=== PATIENT | male | born 1980 | race African-American/Black ===

== ENCOUNTER 2020-03-09 21:24 | Emergency (ER) | payer MEDICAID ==
[~2020-03-09] VITALS: Ht 182.9 cm; Wt 158.8 kg
[2020-03-09 22:39] LABS: Urine Bacteria NONE SEEN /hpf (None Seen); Urine Blood Negative /uL (Negative); Urine Specific Gravity 1.013 (1.001-1.035); Urine WBC <1 /hpf (0 - 3)
[2020-03-09 22:45] LABS: Basophils # (auto) 0.1 10 ^3/uL (0-0.2); Basophils % (auto) 0.6 % (0.0-2.0); Monocytes # (auto) 0.7 10 ^3/uL (0-1.3); Nucleated Red Blood Cells % 0.1 %
[2020-03-09 22:47] LABS: Eosinophils # (auto) 0.2 10 ^3/uL (0-0.8); Eosinophils % (auto) 1.8 % (0.0-7.0); Hematocrit 40.5 % (41.0-53.0); Hemoglobin 12.5 g/dL (13.5-17.5); Lymphocytes # (auto) 1.8 10 ^3/uL (0.4-5.4); Lymphocytes % (auto) 20.5 % (10.0-50.0); Mean Corpuscular Hemoglobin 22.8 pg (28.0-32.0); Mean Corpuscular Volume 73.5 fL (80.0-100.0); Monocytes % (auto) 8.6 % (0.0-12.0); Neutrophils % (auto) 68.5 % (37.0-80.0); Platelet Count (auto) 248 10^3/uL (140-450); Red Cell Distribution Width 14.3 % (11.8-14.3); White Blood Cell 8.7 10^3/uL (4.4-10.8)
[2020-03-09 22:59] LABS: Alanine Aminotransferase 28 U/L (16-61); Albumin 3.6 g/dL (3.4-5.0); Amylase 41 U/L (25-115); Anion Gap 6 (5-15); Blood Urea Nitrogen 15 mg/dL (7-18); Calcium 8.9 mg/dL (8.5-10.1); Carbon Dioxide 27 mmol/L (21-32); Chloride 104 mmol/L (98-107); Glucose 123 mg/dL (74-106); Lipase 158 U/L (73-393); Potassium 4.1 mmol/L (3.5-5.1); Sodium 137 mmol/L (136-145)
[2020-03-09 23:02] LABS: INR 0.99 (0.9-1.15); Partial Thromboplastin Time 26.4 sec (23.0-31.2)
[2020-03-09 23:04] LABS: Alkaline Phosphatase 68 U/L (45-117); Aspartate Aminotransferase 12 U/L (15-37); BUN/Creatinine Ratio 10.7; Bilirubin, Total 0.3 mg/dL (0.2-1.0); GFR African American 71 mL/min; GFR Non-African American 59 mL/min; Total Protein 7.5 g/dL (6.4-8.2)
[2020-03-10] MEDS ORDERED: ONDANSETRON HCL 4 MG/2 ML VIAL IV ONE (03:15)
[2020-03-10] MEDS ORDERED: SODIUM CHLORIDE 0.9% 1,000 ML IV ONE (03:15)
[2020-03-10] MEDS ORDERED: MORPHINE SULFATE 4 MG/ML SYR/VIAL IV ONE (03:15)
[2020-03-10 03:56] VITALS: BP 124/78
== END 2020-03-10 03:32 | disposition home or self-care (01) ==
LOC: ER 21:27
DX: K57.30 Diverticulosis of large intestine without perforation or abscess without bleeding (principal)
CPT/HCPCS: 36415; 74176; 80053; 81001; 82150; 82962; 83690; 84484; 85025; 85379; 85610; 85730; 96361; 96374; 96375; 99285; J2270; J2405; J7030

== ENCOUNTER 2022-03-15 01:30 | Emergency (ER) | payer MEDICAID ==
[~2022-03-15] VITALS: Ht 182.9 cm; Wt 160.0 kg
[2022-03-15 02:00] VITALS: BP 144/76
[2022-03-15 03:33] LABS: Basophils # (auto) 0.1 10 ^3/uL (0-0.2); Mean Corpuscular Hemoglobin 22.7 pg (28.0-32.0); Mean Corpuscular Hgb Conc. 31.3 g/dL (32.0-36.0); White Blood Cell 7.4 10^3/uL (4.4-10.8)
[2022-03-15 03:34] LABS: Basophils % (auto) 1.2 % (0.0-2.0); Eosinophils # (auto) 0.2 10 ^3/uL (0-0.8); Hematocrit 40.7 % (41.0-53.0); Hemoglobin 12.7 g/dL (13.5-17.5); Lymphocytes # (auto) 2.9 10 ^3/uL (0.4-5.4); Lymphocytes % (auto) 38.5 % (10.0-50.0); Mean Corpuscular Volume 72.5 fL (80.0-100.0); Monocytes # (auto) 0.5 10 ^3/uL (0-1.3); Monocytes % (auto) 7.1 % (0.0-12.0); Neutrophils # (auto) 3.7 10 ^3/uL (1.6-8.6); Neutrophils % (auto) 50.2 % (37.0-80.0); Nucleated Red Blood Cells % 0.1 %; Red Blood Cells 5.61 10^6/uL (4.5-5.90); Red Cell Distribution Width 14.3 % (11.8-14.3)
[2022-03-15 03:55] LABS: Albumin 3.8 g/dL (3.4-5.0); Calcium 8.9 mg/dL (8.5-10.1); Magnesium 2.4 mg/dL (1.6-2.6); Potassium 4.1 mmol/L (3.5-5.1)
[2022-03-15 03:58] LABS: Bilirubin, Total 0.3 mg/dL (0.2-1.0); Total Protein 7.1 g/dL (6.4-8.2)
[2022-03-15 04:35] LABS: BUN/Creatinine Ratio 10.7
== END 2022-03-15 05:28 | disposition left against medical advice (07) ==
LOC: ER 01:30
DX: R07.9 Chest pain, unspecified (principal); I10 Essential (primary) hypertension; Z53.21 Procedure and treatment not carried out due to patient leaving prior to being seen by health care provider
CPT/HCPCS: 36415; 70450; 71046; 80053; 83735; 83880; 84484; 85025; 93005

== ENCOUNTER 2022-04-25 01:55 | Emergency (ER) | payer MEDICAID ==
[~2022-04-25] VITALS: Ht 185.4 cm; Wt 151.9 kg
[2022-04-25 02:30] VITALS: BP 152/94
== END 2022-04-25 07:19 | disposition left against medical advice (07) ==
LOC: ER 01:55
DX: I10 Essential (primary) hypertension (principal); R42 Dizziness and giddiness; H53.8 Other visual disturbances; Z53.21 Procedure and treatment not carried out due to patient leaving prior to being seen by health care provider

== ENCOUNTER 2022-05-17 00:41 | Emergency (ER) | payer MEDICAID ==
[~2022-05-17] VITALS: Ht 185.4 cm; Wt 152.2 kg
[2022-05-17 00:50] VITALS: BP 161/89
[2022-05-17] MEDS ORDERED: LORazepam 0.5 MG TAB PO ONE (01:30)
[2022-05-17 01:39] LABS: Hemoglobin 12.7 g/dL (13.5-17.5); Red Cell Distribution Width 13.9 % (11.8-14.3)
[2022-05-17 01:40] LABS: Basophils # (auto) 0.1 10 ^3/uL (0-0.2); Basophils % (auto) 0.8 % (0.0-2.0); Eosinophils # (auto) 0.1 10 ^3/uL (0-0.8); Eosinophils % (auto) 1.9 % (0.0-7.0); Hematocrit 41.3 % (41.0-53.0); Lymphocytes % (auto) 40.8 % (10.0-50.0); Mean Corpuscular Hemoglobin 22.2 pg (28.0-32.0); Mean Corpuscular Hgb Conc. 30.7 g/dL (32.0-36.0); Mean Corpuscular Volume 72.2 fL (80.0-100.0); Monocytes # (auto) 0.5 10 ^3/uL (0-1.3); Monocytes % (auto) 6.5 % (0.0-12.0); Neutrophils # (auto) 3.7 10 ^3/uL (1.6-8.6); Nucleated Red Blood Cells % 0.4 %; Red Blood Cells 5.71 10^6/uL (4.5-5.90); White Blood Cell 7.3 10^3/uL (4.4-10.8)
[2022-05-17 01:49] LABS: Albumin 4.2 g/dL (3.4-5.0); BUN/Creatinine Ratio 16.3; Calcium 9.5 mg/dL (8.5-10.1); Potassium 3.9 mmol/L (3.5-5.1)
[2022-05-17 02:00] LABS: Bilirubin, Total 0.3 mg/dL (0.2-1.0); Total Protein 7.3 g/dL (6.4-8.2)
== END 2022-05-17 03:45 | disposition left against medical advice (07) ==
LOC: ER 00:44
DX: R07.89 Other chest pain (principal)
CPT/HCPCS: 36415; 71045; 80053; 83880; 84484; 85025; 93005

== ENCOUNTER 2024-05-10 13:51 | Emergency (ER) | payer MEDICAID ==
[~2024-05-10] VITALS: Ht 182.9 cm; Wt 153.2 kg
--- NOTE | 2024-05-10 14:30 | ED.PDOC ---
History of Present Illness HPI Comments 44 Y M with PMHX of HTN presents to the ED with CC of hypertension. Patient states, that he is experiencing an episode of hypertension with associated symptoms of anxiety and lightheadedness, Patient relays, that he has slight substernal chest tightness that he believes is due to his spontaneous onset anxiety. Patient's blood pressure in triage read at 179/79 and recheck read at 169/105. Patient denies chest pain, nausea, vomiting, or diarrhea. Time Seen by MD: 14:20 Reviewed Notes: Nurses Notes, Medications, Allergies Allergies: Coded Allergies: NO KNOWN ALLERGIES (Unverified , 05/17/22) Information Source: Patient Mode of Arrival: Ambulatory Severity: Mild Timing: Hours Duration: Since onset Prehospital treatment: None Past Medical History PAST MEDICAL HISTORY: Asthma, HTN Surgical History: Denies all surgeries Family History Family History: Reviewed,noncontributory to illness Social History Smoker: Non-Smoker Alcohol: Denies ETOH Use Drugs: Denies Drug Use Lives In: Home Constitutional: denies: chills, diaphoresis, fatigue, fever, malaise, sweats, weakness, others EENTM: denies: blurred vision, double vision, ear bleeding, ear discharge, ear drainage, ear pain, ear ringing, eye pain, eye redness, hearing loss, mouth pain, mouth swelling, nasal discharge, nose bleeding, nose congestion, nose pain, photophobia, tearing, throat pain, throat swelling, voice changes, others Respiratory: denies: cough, hemoptysis, orthopnea, SOB at rest, shortness of breath, SOB with excertion, stridor, wheezing, others Cardiovascular: reports: others (CHEST TIGHTNESS); denies: chest pain, dizzy spells, diaphoresis, Dyspnea on exertion, edema, irregular heart beat, left arm pain, lightheadedness, palpitations, PND, syncope Gastrointestinal: denies: abdomen distended, abdominal pain, blood streaked bowels, constipated, diarrhea, dysphagia, difficulty swallowing, hematemesis, melena, nausea, poor appetite, poor fluid intake, rectal bleeding, rectal pain, vomiting, others Genitourinary: denies: burning, dysuria, flank pain, frequency, hematuria, incontinence, penile discharge, penile sore, pain, testicle pain, testicle swelling, urgency, others Neurological: denies: dizziness, fainting, headache, left sided numbness, left sided weakness, numbness, paresthesia, pre-existing deficit, right sided numbness, right sided weakness, seizure, speech problems, tingling, tremors, weakness, others Musculoskeletal: denies: back pain, gout, joint pain, joint swelling, muscle pain, muscle stiffness, neck pain, others Integumetry: denies: bruises, change in color, change in hair/nails, dryness, laceration, lesions, lumps, rash, wounds, others Allergic/Immunocompromised: denies: Difficulty Healing, Frequent Infections, Hives, Itching, others Hematologic/Lymphatic: denies: anemia, blood clots, easy bleeding, easy bruising, swollen glands, others Endocrine: denies: excessive hunger, excessive sweating, excessive thirst, excessive urination, flushing, intolerance to cold, intolerance to heat, unexplained weight gain, unexplained weight loss, others Psychiatric: reports: anxiety; denies: bipolar disorder, depression, hopeless, panic disorder, schizophrenia, sleepless, suicidal, others All Other Systems: Reviewed and Negative Physical Exam General Appearance: No Apparent Distress HEENT: Normal ENT Inspection, Pharynx Normal, TMs Normal Neck: Full Range of Motion, Non-Tender, Normal, Normal Inspection Respiratory: Chest Non-Tender, Lungs Clear, No Accessory Muscle Use, No Respiratory Distress, Normal Breath Sounds Cardiovascular: No Edema, No JVD, No Murmur, No Gallop, Normal Peripheral Pulses, Regular Rate/Rhythm Breast Exam: Deferred Gastrointestinal: No Organomegaly, Non Tender, No Pulsatile Mass, Normal Bowel Sounds, Soft Genitalia: Deferred Pelvic: Deferred Rectal: Deferred Extremities: No calf tenderness, Normal capillary refill, Normal inspection, Normal range of motion, Non-tender, No pedal edema Musculoskeletal : Apperance: Normal Neurologic: Alert, metalworker 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 Was a procedure done?: No EKG EKG : Pulse Rate (adult): 89 [place]: Normal Cardiac Rhythm: NSR Block: None Hypertrophy: None ST: Normal Differential Dx Considerations may include: HTN URGENCY, ANXIETY ATTACK X-Ray, Labs, Meds, VS Vital Signs Date Time Temp Pulse Resp B/P (MAP) Pulse Ox O2 Delivery O2 Flow Rate FiO2 05/10/24 15:25 98.3 81 18 164/101 (122) 95 98.3 05/10/24 15:25 81 18 95 Room Air 05/10/24 15:24 164/101 05/10/24 14:41 98.0 92 18 178/95 (122) 96 98.0 05/10/24 14:37 Room Air* 0 21 05/10/24 14:36 178/95 05/10/24 14:30 89 05/10/24 14:15 98.5 94 18 179/97 (124) 99 169/105 (126) 163/98 (119) Lab Test 05/10/24 16:27 05/10/24 15:38 05/10/24 15:25 Range/Units Troponin I High Sensitivity < 3 L < 3 L </=54 ng/L White Blood Count 6.8 4.4-10.8 10^3/uL Red Blood Count 5.71 4.5-5.90 10^6/uL Hemoglobin 13.5 13.5-17.5 g/dL Hematocrit 41.5 41.0-53.0 % Mean Corpuscular Volume 72.6 L 80.0-100.0 fL Mean Corpuscular Hemoglobin 23.6 L 28.0-32.0 pg Mean Corpuscular Hemoglobin Concent 32.4 32.0-36.0 g/dL Red Cell Distribution Width 13.8 11.8-14.3 % Platelet Count 275 140-450 10^3/uL Mean Platelet Volume 8.1 6.9-10.8 fL Neutrophils (%) (Auto) 59.3 37.0-80.0 % Lymphocytes (%) (Auto) 27.7 10.0-50.0 % Monocytes (%) (Auto) 8.1 0.0-12.0 % Eosinophils (%) (Auto) 4.2 0.0-7.0 % Basophils (%) (Auto) 0.7 0.0-2.0 % Neutrophils # (Auto) 4.0 1.6-8.6 10 ^3/uL Lymphocytes # (Auto) 1.9 0.4-5.4 10 ^3/uL Monocytes # (Auto) 0.6 0-1.3 10 ^3/uL Eosinophils # (Auto) 0.3 0-0.8 10 ^3/uL Basophils # (Auto) 0.1 0-0.2 10 ^3/uL Nucleated Red Blood Cells 0.1 % Sodium Level 139 136-145 mmol/L Potassium Level 3.9 3.5-5.1 mmol/L Chloride Level 105 98-107 mmol/L Carbon Dioxide Level 28 20-31 mmol/L Anion Gap 6 5-15 Blood Urea Nitrogen 14 9-23 mg/dL Creatinine 1.37 H 0.700-1.30 mg/dL Glomerular Filtration Rate Calc 64 >90 mL/min BUN/Creatinine Ratio 10.2 10.0-20.0 Serum Glucose 98 74-106 mg/dL Calcium Level 10.4 8.7-10.4 mg/dL Urine Color Yellow Yellow Urine Clarity Clear Clear Urine pH 7.0 5.0-9.0 Urine Specific [facility] 1.024 1.001-1.035 Urine Protein Negative Negative Urine Ketones Negative Negative Urine Blood Negative Negative /uL Urine Nitrite Negative Negative Urine Bilirubin Negative Negative Urine Urobilinogen 3 H Negative mg/dL Urine Leukocyte Esterase Negative Negative /uL Urine RBC None seen 0 - 3 /hpf Urine WBC <1 0 - 3 /hpf Urine Squamous Epithelial Cells None seen <5 /hpf Urine Bacteria None seen None Seen /hpf Urine Glucose Normal Normal mg/dL Current Medications Medications (Trade) Dose Ordered Sig/Gunjan Route Start Time Stop Time Status Last Admin Aspirin 162 mg ONCE ONCE PO 05/10/24 14:30 05/10/24 14:31 DC 05/10/24 14:36 Clonidine HCl (Catapres Tablet) 0.1 mg ONCE ONCE PO 05/10/24 14:30 05/10/24 14:31 DC 05/10/24 14:36 CXR: IMPRESSION: No acute cardiopulmonary disease. At this time the patient's CBC is within normal limits The chemistry panel is within normal limits The urine test is negative The patient was given aspirin 162 mg by mouth The patient was also given clonidine 0.1 mg by mouth for the elevated blood pressure At this time, the patient was being discharged. Images Reviewed?: Images reviewed and evaluated by me Time of 1ST Reevaluation: 14:50 Reevaluation 1ST: Unchanged Patient Education/Counseling: Diagnosis, Treatment, Prognosis, Need For Follow Up Family Education/Counseling: No Family Present Additional Information - I reviewed the following notes from patient's past medical encounters: 05/07/22 DX: CHEST PAIN - The following tests were ordered, and results were reviewed by me: CXR, LABS - I reviewed and agreed with the following test results read by other provider: CXR - I discussed treatments and results with medical personnel and: PATIENT Departure 1 Departure Time of Disposition: 17:22 Impression: Primary Impression: Hypertensive urgency Additional Impression: Acute anxiety Disposition: HOME / SELF CARE / HOMELESS Condition: Fair Discharged With: Self Critical Care Note Critical Care Time?: No Stability Stability form required: No Heart Score Heart Score: Heart Score Response (Comments) Value History N/A 0 EKG N/A 0 Age N/A 0 Risk Factors N/A 0 Troponin N/A 0 Total 0 I personally scribed for KATLYN BETANCUR MD ([email or web address]) on 05/10/24 at 14:30. Electronically submitted by Mariana Garcia ([email or web address]). I personally scribed for KATLYN BETANCUR MD ([email or web address]) on 05/10/24 at 16:39. Electronically submitted by Mariana Garcia ([email or web address]). I personally scribed for KATLYN BETANCUR MD ([email or web address]) on 05/10/24 at 16:40. Electronically submitted by Mariana Garcia ([email or web address]). I personally scribed for KATLYN BETANCUR MD ([email or web address]) on 05/10/24 at 16:41. Electronically submitted by Mariana Garcia ([email or web address]). KATLYN BETANCUR MD May 10, 2024 14:30
[2024-05-10] MEDS: ASPirin 81 mg TAB PO ONE (14:36)
[2024-05-10] MEDS: cloNIDine HCL 0.1 MG TAB PO ONE (14:36)
--- NOTE | 2024-05-10 14:43 | DVH ---
XY CHEST TWO VIEWS ROUTINE CLINICAL HISTORY: pain COMPARISON: CHEST TWO VIEWS ROUTINE on DOS: 03/15/22, CXR2 on DOS: 03/15/22 TECHNIQUE: Frontal and lateral view of the chest was obtained FINDINGS: Lines and Tubes: None Lungs: No focal consolidation. Pleura: No effusion. No pneumothorax. Cardiomediastinal contours: Unremarkable Bones: No acute osseous abnormality. IMPRESSION: No acute cardiopulmonary disease.
[2024-05-10 15:25] VITALS: TEMP 98.3
[2024-05-10 16:12] LABS: Basophils % (auto) 0.7 % (0.0-2.0); Eosinophils # (auto) 0.3 10 ^3/uL (0-0.8); Mean Corpuscular Volume 72.6 fL (80.0-100.0); Nucleated Red Blood Cells % 0.1 %
[2024-05-10 16:17] LABS: Urine Bacteria None Seen /hpf (None Seen)
[2024-05-10 16:17] LABS: Basophils # (auto) 0.1 10 ^3/uL (0-0.2); Eosinophils % (auto) 4.2 % (0.0-7.0); Hematocrit 41.5 % (41.0-53.0); Hemoglobin 13.5 g/dL (13.5-17.5); Lymphocytes # (auto) 1.9 10 ^3/uL (0.4-5.4); Lymphocytes % (auto) 27.7 % (10.0-50.0); Mean Corpuscular Hemoglobin 23.6 pg (28.0-32.0); Mean Corpuscular Hgb Conc. 32.4 g/dL (32.0-36.0); Monocytes # (auto) 0.6 10 ^3/uL (0-1.3); Monocytes % (auto) 8.1 % (0.0-12.0); Neutrophils % (auto) 59.3 % (37.0-80.0); Platelet Count (auto) 275 10^3/uL (140-450); Red Blood Cells 5.71 10^6/uL (4.5-5.90); Red Cell Distribution Width 13.8 % (11.8-14.3); White Blood Cell 6.8 10^3/uL (4.4-10.8)
[2024-05-10 16:27] LABS: Anion Gap 6 (5-15); Carbon Dioxide 28 mmol/L (20-31); Chloride 105 mmol/L (98-107); Potassium 3.9 mmol/L (3.5-5.1); Sodium 139 mmol/L (136-145)
[2024-05-10 16:33] LABS: Urine Blood Negative /uL (Negative); Urine Clarity Clear (Clear); Urine Color Yellow (Yellow); Urine Protein, UAD Negative (Negative); Urine Specific Gravity 1.024 (1.001-1.035); Urine Squamous Epithelial Cell None Seen /hpf (<5); Urine Urobilinogen 3 mg/dL (Negative); Urine WBC <1 /hpf (0 - 3)
[2024-05-10 16:33] LABS: BUN/Creatinine Ratio 10.2 (10.0-20.0); Blood Urea Nitrogen 14 mg/dL (9-23); Glucose 98 mg/dL (74-106)
[2024-05-10 16:36] LABS: Calcium 10.4 mg/dL (8.7-10.4)
[2024-05-10 17:41] VITALS: BP 171/99; PULSE 71; RESP 18; O2SAT 100
== END 2024-05-10 17:42 | disposition home or self-care (01) ==
LOC: ER 13:51
DX: I16.0 Hypertensive urgency (principal); F41.9 Anxiety disorder, unspecified; J45.909 Unspecified asthma, uncomplicated
CPT/HCPCS: 36415; 71046; 80048; 81001; 84484; 85025

== ENCOUNTER 2024-07-27 00:58 | Inpatient (IN) | payer MEDICAID ==
[~2024-07-27] VITALS: Ht 185.4 cm; Wt 157.8 kg
[2024-07-27] VITALS (10 sets, daily range): BP systolic 128–151; BP diastolic 77–93; PULSE 78–85; RESP 14–18; TEMP 97.7–97.9; O2SAT 94–98
--- NOTE | 2024-07-27 01:55 | ED.PDOC ---
History of Present Illness HPI Comments 44-year-old male who came to ER for high blood pressure. Patient has history of hypertension and has a good compliance to his medications. States he was at home earlier, when he stood up, and he feels suddenly dizzy with the headaches. Blood pressure taken at home was 168/107 mm Hg. Denies any chest pains or shortness a breath, Blood pressure at the ER was 159/92 mmHg Chief Complaint: High Blood Pressure Time Seen by MD: 01:55 Primary Care Provider: GENEVIEVE Mathis Notes: Nurses Notes Allergies: Coded Allergies: NO KNOWN ALLERGIES (Unverified , 05/17/22) Information Source: Patient Mode of Arrival: Ambulatory Severity: Moderate Timing: Hours Duration: Since onset Prehospital treatment: None Past Medical History PAST MEDICAL HISTORY: Asthma, HTN Surgical History: Denies all surgeries Family History Family History: Reviewed,noncontributory to illness Social History Smoker: Non-Smoker Alcohol: Denies ETOH Use Drugs: Denies Drug Use Lives In: Home Constitutional: denies: chills, diaphoresis, fatigue, fever, malaise, sweats, weakness, others EENTM: denies: blurred vision, double vision, ear bleeding, ear discharge, ear drainage, ear pain, ear ringing, eye pain, eye redness, hearing loss, mouth pa in, mouth swelling, nasal discharge, nose bleeding, nose congestion, nose pain, photophobia, tearing, throat pain, throat swelling, voice changes, others Respiratory: denies: cough, hemoptysis, orthopnea, SOB at rest, shortness of breath, SOB with excertion, stridor, wheezing, others Cardiovascular: denies: chest pain, dizzy spells, diaphoresis, Dyspnea on exertion, edema, irregular heart beat, left arm pain, lightheadedness, palpitations, PND, syncope, others Gastrointestinal: denies: abdomen distended, abdominal pain, blood streaked bowels, constipated, diarrhea, dysphagia, difficulty swallowing, hematemesis, melena, nausea, poor appetite, poor fluid intake, rectal bleeding, rectal pain, vomiting, others Genitourinary: denies: burning, dysuria, flank pain, frequency, hematuria, incontinence, penile discharge, penile sore, pain, testicle pain, testicle swelling, urgency, others Neurological: reports: dizziness, headache; denies: fainting, left sided numbness, left sided weakness, numbness, paresthesia, pre-existing deficit, right sided numbness, right sided weakness, seizure, speech problems, tingling, tremors, weakness, others Musculoskeletal: denies: back pain, gout, joint pain, joint swelling, muscle pain, muscle stiffness, neck pain, others Integumetry: denies: bruises, change in color, change in hair/nails, dryness, laceration, lesions, lumps, rash, wounds, others Allergic/Immunocompromised: denies: Difficulty Healing, Frequent Infections, Hives, Itching, others Hematologic/Lymphatic: denies: anemia, blood clots, easy bleeding, easy bruising, swollen glands, others Endocrine: denies: excessive hunger, excessive sweating, excessive thirst, excessive urination, flushing, intolerance to cold, intolerance to heat, unexplained weight gain, unexplained weight loss, others Psychiatric: denies: anxiety, bipolar disorder, depression, hopeless, panic disorder, schizophrenia, sleepless, suicidal, others Physical Exam General Appearance: No Apparent Distress, Normal HEENT: Normal ENT Inspection, Pharynx Normal, TMs Normal Neck: Full Range of Motion, Non-Tender, Normal, Normal Inspection Respiratory: Chest Non-Tender, Lungs Clear, No Accessory Muscle Use, No Respiratory Distress, Normal Breath Sounds Cardiovascular: No Edema, No JVD, No Murmur, No Gallop, Normal Peripheral Pulses, Regular Rate/Rhythm Breast Exam: Deferred Gastrointestinal: No Organomegaly, Non Tender, No Pulsatile Mass, Normal Bowel Sounds, Soft Genitalia: Deferred Pelvic: Deferred Rectal: Deferred Extremities: No calf tenderness, Normal capillary refill, Normal inspection, Normal range of motion, Non-tender, No pedal edema Musculoskeletal : Apperance: Normal Neurologic: Alert, 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 Was a procedure done?: No Differential Dx Considerations may include: Anemia, electrolyte imbalance, hypertensive urgency X-Ray, Labs, Meds, VS Vital Signs Date Time Temp Pulse Resp B/P (MAP) Pulse Ox O2 Delivery O2 Flow Rate FiO2 07/27/24 01:42 97.7 82 18 150/95 (113) 95 97.7 07/27/24 01:40 Room Air* 0 21 07/27/24 01:39 84 07/27/24 01:15 98.1 93 18 159/92 (114) 99 98.1 Lab Test 07/27/24 02:23 07/27/24 01:37 Range/Units Troponin I High Sensitivity 4 4 </=54 ng/L White Blood Count 7.8 4.4-10.8 10^3/uL Red Blood Count 5.29 4.5-5.90 10^6/uL Hemoglobin 12.3 L 13.5-17.5 g/dL Hematocrit 38.5 L 41.0-53.0 % Mean Corpuscular Volume 72.9 L 80.0-100.0 fL Mean Corpuscular Hemoglobin 23.4 L 28.0-32.0 pg Mean Corpuscular Hemoglobin Concent 32.1 32.0-36.0 g/dL Red Cell Distribution Width 13.8 11.8-14.3 % Platelet Count 264 140-450 10^3/uL Mean Platelet Volume 8.1 6.9-10.8 fL Neutrophils (%) (Auto) 51.4 37.0-80.0 % Lymphocytes (%) (Auto) 36.0 10.0-50.0 % Monocytes (%) (Auto) 9.5 0.0-12.0 % Eosinophils (%) (Auto) 2.4 0.0-7.0 % Basophils (%) (Auto) 0.7 0.0-2.0 % Neutrophils # (Auto) 4.0 1.6-8.6 10 ^3/uL Lymphocytes # (Auto) 2.8 0.4-5.4 10 ^3/uL Monocytes # (Auto) 0.7 0-1.3 10 ^3/uL Eosinophils # (Auto) 0.2 0-0.8 10 ^3/uL Basophils # (Auto) 0.1 0-0.2 10 ^3/uL Nucleated Red Blood Cells 0.1 % Sodium Level 140 136-145 mmol/L Potassium Level 3.6 3.5-5.1 mmol/L Chloride Level 105 98-107 mmol/L Carbon Dioxide Level 29 20-31 mmol/L Anion Gap 6 5-15 Blood Urea Nitrogen 16 9-23 mg/dL Creatinine 1.33 H 0.700-1.30 mg/dL Glomerular Filtration Rate Calc 67 >90 mL/min BUN/Creatinine Ratio 12.0 10.0-20.0 Serum Glucose 92 74-106 mg/dL Calcium Level 9.8 8.7-10.4 mg/dL Time of 1ST Reevaluation: 01:50 Reevaluation 1ST: Unchanged Patient Education/Counseling: Diagnosis, Treatment Family Education/Counseling: No Family Present Departure 1 Departure Time of Disposition: 03:43 (Patient with a worsening dizziness shortness of breath. We will admit patient for further workup) Impression: Primary Impression: Dizziness Additional Impressions: Weakness Shortness of breath Disposition: ADMITTED INPATIENT Admit to: Med Surg Condition: Serious Critical Care Note Critical Care Time?: No Stability Stability form required: No Heart Score Heart Score: Heart Score Response (Comments) Value History N/A 0 EKG N/A 0 Age N/A 0 Risk Factors N/A 0 Troponin N/A 0 Total 0 I personally scribed for LILLIANA AMOR MD ([email or web address]) on 07/27/24 at 01:55. Electronically submitted by Moises Rodriguez ([email or web address]). LILLIANA AMOR MD Jul 27, 2024 01:55
--- NOTE | 2024-07-27 01:58 | DVH ---
CHEST RADIOGRAPH Indication: dizziness Technique: Single frontal view of the chest was obtained COMPARISON: CHEST PORTABLE on DOS: 05/17/22, CXRP on DOS: 05/16/22, EKG on DOS: 03/15/22, EKG on DOS: 1 05/15/21, EKG on DOS: 03/15/22 FINDINGS: Lines and Tubes: None Lungs: Clear Pleura: No effusion. No pneumothorax. Cardiomediastinal contours: Unremarkable Bones: Unremarkable IMPRESSION: 1. No acute disease.
[2024-07-27 02:01] LABS: Chloride 105 mmol/L (98-107); Potassium 3.6 mmol/L (3.5-5.1); Sodium 140 mmol/L (136-145)
[2024-07-27 02:02] LABS: Anion Gap 6 (5-15); Calcium 9.8 mg/dL (8.7-10.4); Carbon Dioxide 29 mmol/L (20-31)
--- NOTE | 2024-07-27 02:04 | DVH ---
EXAM: CT HEAD WITHOUT CONTRAST INDICATION: dizziness TECHNIQUE: CT of the head without intravenous contrast. Radiation Dose : 1. Head: CT Dose: CTDI volume is 69.51 mGy. Dose-length product is 1367.97 mGy*cm The dose indicators for CT are the volume Computed Tomography (CT) Dose Index (CTDIvol) and the Dose Length Product (DLP), and are measured in units of mGy and mGy-cm, respectively. These indicators are not patient dose, but values generated from the CT scanner acquisition factors. The report includes radiation exposure data for exposures received during this examination. COMPARISON: HEAD WITHOUT CONTRAST on DOS: 03/15/22 FINDINGS: There is no evidence of acute intracranial hemorrhage, extra-axial collection, mass effect, midline s hift, herniation or hydrocephalus. The ventricles, sulci and cisterns are age appropriate. The marquez-white differentiation is intact. Minimal bilateral ethmoid and sphenoid mucosal sinus disease is noted. The remaining visualized para nasal sinuses are clear. 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 The mastoid air cells are clear. The surrounding soft tissues and osseous structures are unremarkable. IMPRESSION: 1. No acute intracranial abnormality. Radiation optimization: All CT scans at this facility use at least one of these dose optimization yvonne hniques: automated exposure control mA and/or kV adjustment per patient size (includes targeted exam s where dose is matched to clinical indication) or iterative reconstruction.
[2024-07-27 02:06] LABS: Basophils # (auto) 0.1 10 ^3/uL (0-0.2); Eosinophils # (auto) 0.2 10 ^3/uL (0-0.8); Monocytes % (auto) 9.5 % (0.0-12.0); Nucleated Red Blood Cells % 0.1 %
[2024-07-27 02:07] LABS: Blood Urea Nitrogen 16 mg/dL (9-23); Glucose 92 mg/dL (74-106)
[2024-07-27 02:08] LABS: Basophils % (auto) 0.7 % (0.0-2.0); Eosinophils % (auto) 2.4 % (0.0-7.0); Hematocrit 38.5 % (41.0-53.0); Hemoglobin 12.3 g/dL (13.5-17.5); Lymphocytes # (auto) 2.8 10 ^3/uL (0.4-5.4); Mean Corpuscular Hemoglobin 23.4 pg (28.0-32.0); Mean Corpuscular Hgb Conc. 32.1 g/dL (32.0-36.0); Mean Corpuscular Volume 72.9 fL (80.0-100.0); Monocytes # (auto) 0.7 10 ^3/uL (0-1.3); Neutrophils % (auto) 51.4 % (37.0-80.0); Platelet Count (auto) 264 10^3/uL (140-450); Red Blood Cells 5.29 10^6/uL (4.5-5.90); Red Cell Distribution Width 13.8 % (11.8-14.3); White Blood Cell 7.8 10^3/uL (4.4-10.8)
--- NOTE | 2024-07-27 07:39 | DVHHP2 ---
History of Present Illness Reason for Visit: Dizziness with elevated blood pressure History of Present Illness Laura Caraballo is a 44-year-old male with past medical history of hypertension and asthma who presents to the ED for dizziness, blurry vision, and elevated blood pressure. Patient reports that he was painting outdoors and stated that his head suddenly felt hot and numb. Patient also reports that he has been constipated for the last day and a half in his last bowel movement was 2 days ago and he states he goes daily. Patient also reports that he was sick with congestion his [place] also at chair side was sick with allergies as well. He states he did not take any medications or antibiotics for the illness. Patient denies chest pains, shortness of breath, chills, paresthesia, tingling, recent trauma or injury, abdominal pain, nausea, vomiting, or diarrhea. Patient also states that he takes beet root and ashwagandha. Cardiovascular: HTN Pulmonary: Asthma Past Surgical History: None Family History: Hypertension, Other (Mom with hypertension and dad with [place]) Smoke: No ALCOHOL: none Drugs: None Lives: with Family Domestic Violence: Neg Review of Systems Constitutional: Yes: Other (Dizziness) Eyes: Other (Blurry vision) Gastrointestinal: Constipation Allergies: Coded Allergies: NO KNOWN ALLERGIES (Unverified , 05/17/22) Exam Vital Signs Vital Signs Date Time Temp Pulse Resp B/P (MAP) Pulse Ox O2 Delivery O2 Flow Rate FiO2 07/27/24 01:42 97.7 82 18 150/95 (113) 95 97.7 07/27/24 01:40 Room Air* 0 21 General Appearance: Alert, Oriented X3, Cooperative, No acute distress HEENT: Atraumatic, PERRLA, EOMI, Mucous membr. moist/pink Respiratory: Clear to auscultation, Normal air movement Cardiovascular: Normal S1, Normal S2, No murmurs Abdominal: Soft, No tenderness Extremities: No clubbing, No cyanosis, Normal pulses Neuro: Normal gait, Normal speech, Strength at 5/5 X4 ext, Normal tone, Sensation intact Psych/Mental Status: Mental status NL, Mood NL Labs/Xrays Labs Test 07/27/24 02:23 07/27/24 01:37 Range/Units Troponin I High Sensitivity 4 </=54 ng/L White Blood Count 7.8 4.4-10.8 10^3/uL Red Blood Count 5.29 4.5-5.90 10^6/uL Hemoglobin 12.3 L 13.5-17.5 g/dL Hematocrit 38.5 L 41.0-53.0 % Mean Corpuscular Volume 72.9 L 80.0-100.0 fL Mean Corpuscular Hemoglobin 23.4 L 28.0-32.0 pg Mean Corpuscular Hemoglobin Concent 32.1 32.0-36.0 g/dL Red Cell Distribution Width 13.8 11.8-14.3 % Platelet Count 264 140-450 10^3/uL Mean Platelet Volume 8.1 6.9-10.8 fL Neutrophils (%) (Auto) 51.4 37.0-80.0 % Lymphocytes (%) (Auto) 36.0 10.0-50.0 % Monocytes (%) (Auto) 9.5 0.0-12.0 % Eosinophils (%) (Auto) 2.4 0.0-7.0 % Basophils (%) (Auto) 0.7 0.0-2.0 % Neutrophils # (Auto) 4.0 1.6-8.6 10 ^3/uL Lymphocytes # (Auto) 2.8 0.4-5.4 10 ^3/uL Monocytes # (Auto) 0.7 0-1.3 10 ^3/uL Eosinophils # (Auto) 0.2 0-0.8 10 ^3/uL Basophils # (Auto) 0.1 0-0.2 10 ^3/uL Nucleated Red Blood Cells 0.1 % Sodium Level 140 136-145 mmol/L Potassium Level 3.6 3.5-5.1 mmol/L Chloride Level 105 98-107 mmol/L Carbon Dioxide Level 29 20-31 mmol/L Anion Gap 6 5-15 Blood Urea Nitrogen 16 9-23 mg/dL Creatinine 1.33 H 0.700-1.30 mg/dL Glomerular Filtration Rate Calc 67 >90 mL/min BUN/Creatinine Ratio 12.0 10.0-20.0 Serum Glucose 92 74-106 mg/dL Calcium Level 9.8 8.7-10.4 mg/dL EXAM: CT HEAD WITHOUT CONTRAST INDICATION: dizziness TECHNIQUE: CT of the head without intravenous contrast. Radiation Dose : 1. Head: CT Dose: CTDI volume is 69.51 mGy. Dose-length product is 1367.97 mGy*cm The dose indicators for CT are the volume Computed Tomography (CT) Dose Index (CTDIvol) and the Dose Length Product (DLP), and are measured in units of mGy and mGy-cm, respectively. These indicators are not patient dose, but values generated from the CT scanner acquisition factors. The report includes radiation exposure data for exposures received during this examination. COMPARISON: HEAD WITHOUT CONTRAST on DOS: 03/15/22 FINDINGS: There is no evidence of acute intracranial hemorrhage, extra-axial collection, mass effect, midline shift, herniation or hydrocephalus. The ventricles, sulci and cisterns are age appropriate. The marquez-white differentiation is intact. Minimal bilateral ethmoid and sphenoid mucosal sinus disease is noted. The remaining visualized paranasal sinuses are clear. 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 The mastoid air cells are clear. The surrounding soft tissues and osseous structures are unremarkable. IMPRESSION: 1. No acute intracranial abnormality. CHEST RADIOGRAPH Indication: dizziness Technique: Single frontal view of the chest was obtained COMPARISON: CHEST PORTABLE on DOS: 05/17/22, CXRP on DOS: 05/16/22, EKG on DOS: 03/15/22, EKG on DOS: 03/15/22, EKG on DOS: 03/15/22 FINDINGS: Lines and Tubes: None Lungs: Clear Pleura: No effusion. No pneumothorax. Cardiomediastinal contours: Unremarkable Bones: Unremarkable IMPRESSION: 1. No acute disease. Assessment/Plan Assessment/Plan Assessment Autonomic instability Hypertension Visual acuity impairment Morbid obesity Constipation SAM History of asthma Plan Admit to med surge Antiemetics Antihypertensives Meclizine Duo nebs Stool softener Echo ordered IV fluids ordered UDS TSH Flu test COVID test Counseled patient on lifestyle modifications, diet, and exercise Home medications reconciled Discussed plan of care with patient, patient's spouse and nurse DVT prophylaxis not indicated patient ambulating PUD prophylaxis-omeprazole, continue home medication Plan discussed with: Patient, Spouse My Orders Orders - REENA SWAN Procedure Category Date Status Time Admit ADMIT 07/27/24 Transmitted 07:35 Allergies YOANA 07/27/24 Transmitted 07:35 Code Status CODE 07/27/24 Transmitted 07:35 0.9% Ns 1000 Ml PHA 07/27/24 Transmitted 07:45 Ondansetron Hcl PHA 07/27/24 Transmitted (Zofran) 07:45 Complete Blood Count LAB 07/28/24 Verified 04:00 Comprehensive LAB 07/28/24 Verified Metabolic Panel 04:00 Cardiac DIET 07/27/24 Transmitted Diet-2gna,Lofat,Lochol Breakfast Echo 2d Mode Cardiac US 07/27/24 Transmitted DOP 07:35 Acetaminophen Tablet PHA 07/27/24 Transmitted (Tylenol Tablet) 07:45 Drug Screen LAB 07/27/24 Transmitted 07:35 Urinalysis LAB 07/27/24 Transmitted 07:35 Thyroid Stimulating LAB 07/27/24 Transmitted Hormone 07:35 Rapid Influenza A&B LAB 07/27/24 Verified 07:37 Covid19 Antigen Ginger LAB 07/27/24 Verified Date of Service: Jul 27, 2024 Billing Provider: REENA SWAN Common Visit Codes: [id number] INP/OBS CARE (HIGH) REENA SWAN Jul 27, 2024 07:39
[2024-07-27] MEDS ORDERED: SODIUM CHLORIDE 0.9% 1,000 ML IV SCH (07:45)
[2024-07-27] MEDS ORDERED: ONDANSETRON HCL 4 MG/2 ML VIAL IV PRN (07:45)
[2024-07-27] MEDS ORDERED: ACETAMINOPHEN 325 MG TAB PO PRN (07:45)
[2024-07-27 09:47] LABS: Rapid Influenza A Negative (Negative); Rapid Influenza B Negative (Negative)
[2024-07-27 09:48] LABS: COVID19 ANTIGEN SOFIA FIA NEGATIVE (NEGATIVE)
--- NOTE | 2024-07-27 10:58 | ECG ---
[facility] Test Date: 2024-07-27 Test Time: 01:33:08 Pat Name: ROSEY JACINTO Department: ER Room: 0239 Gender: M Drill Doctor: RICHA : 1980 Requested By: LILLIANA AMOR Order Number: [id number] Reading MD: Jasbir Sweeney Measurements Intervals [place] Rate: 84 P: 74 [place]: 149 QRS: 32 QRSD: 95 T: 42 QT: 354 QTc: 419 Interpretive Statements Sinus rhythm Electronically Signed On 07-27-2024 11:57:33 PDT by Jasbir Sweeney Please click the below link to view image of tracing.
[2024-07-27] MEDS ORDERED: HYDR50TA69 PO (11:55)
[2024-07-27] MEDS ORDERED: CHOL50007 PO (11:55)
[2024-07-27] MEDS ORDERED: OMEP1CAP70 PO (11:55)
[2024-07-27] MEDS ORDERED: ATEN25TA PO (11:55)
[2024-07-27] MEDS ORDERED: HYDR25TA4 PO (11:55)
[2024-07-27] MEDS ORDERED: AMLO1TAB23 PO (11:55)
[2024-07-27] MEDS ORDERED: MECLIZINE HCL 25 MG TAB PO PRN (12:00)
[2024-07-27] MEDS: SODIUM CHLORIDE 0.9% 1,000 ML IV SCH (12:00)
--- NOTE | 2024-07-27 13:14 | DVH ---
CT ABDOMEN AND PELVIS WITHOUT CONTRAST CLINICAL HISTORY: connstipation TECHNIQUE: Multiple contiguous axial images of the abdomen and pelvis without intravenous contrast. T he images were reformatted degenerate coronal and sagittal reconstructions. All CT scans at this medical facility are performed using dose modulation techniques as appropriate t o a performed exam including the following:Automated exposure control was utilized; adjustment of the MA and/or KV according to patient size; and use of iterative reconstruction technique. Radiation Dose Information: CT Dose: CTDI volume is 27 mGy. Dose-length product is 1358 mGy*cm Comparison: CT ABD PELVIS WO CONTRAST on DOS: 03/09/20 FINDINGS: Evaluation of the abdomen and pelvis is limited without intravenous contrast. The liver, gallbladder, pancreas, kidneys, adrenal glands, and spleen appear within normal limits. There is no gross evidence of abdominal lymphadenopathy. There is no free fluid or free air. The stomach grossly appears unremarkable. The small and large bowel loops demonstrate normal caliber and distribution. There are multiple diverticula in the distal colon without evidence of acute diver ticulitis. A normal appearing appendix is seen in the right lower quadrant abdomen. The abdominal aorta and IVC appear within normal limits. The bladder appears unremarkable for the degree of distention. Pelvic organ appears within normal barboza its. There is no gross evidence of a pelvic mass. There is no free fluid collection. Lung bases are clear. There is no acute osseous abnormality. IMPRESSION: 1. There is no acute process in the abdomen and pelvis. 2. Uncomplicated distal colon diverticulosis. HS:Y
[2024-07-27] MEDS: IPRATROPIUM BROM 0.5 MG/2.5ML INH SOL NEB PRN (13:20)
[2024-07-27] MEDS: ALBUTEROL SULF 2.5 MG/0.5ML(0.5%) NEB SOLN NEB PRN (13:20)
[2024-07-27] MEDS: DOCUSATE SOD 100 MG CAP PO SCH (21:54)
[2024-07-27] MEDS: hydrOXYzine 25 MG TAB or CAP PO PRN (21:58)
[2024-07-28] VITALS (11 sets, daily range): BP systolic 132–145; BP diastolic 77–88; PULSE 70–84; RESP 16–20; TEMP 97.4–98.1; O2SAT 94–100
[2024-07-28 06:34] LABS: Hemoglobin 12.1 g/dL (13.5-17.5); Monocytes # (auto) 0.6 10 ^3/uL (0-1.3); Neutrophils # (auto) 2.7 10 ^3/uL (1.6-8.6); Nucleated Red Blood Cells % 0.1 %
[2024-07-28 06:37] LABS: Basophils # (auto) 0.1 10 ^3/uL (0-0.2); Basophils % (auto) 0.8 % (0.0-2.0); Eosinophils # (auto) 0.3 10 ^3/uL (0-0.8); Eosinophils % (auto) 4.3 % (0.0-7.0); Lymphocytes # (auto) 2.7 10 ^3/uL (0.4-5.4); Lymphocytes % (auto) 43.1 % (10.0-50.0); Mean Corpuscular Hemoglobin 22.8 pg (28.0-32.0); Mean Corpuscular Volume 73.5 fL (80.0-100.0); Monocytes % (auto) 8.9 % (0.0-12.0); Neutrophils % (auto) 42.9 % (37.0-80.0); Platelet Count (auto) 250 10^3/uL (140-450); Red Cell Distribution Width 13.9 % (11.8-14.3); White Blood Cell 6.3 10^3/uL (4.4-10.8)
[2024-07-28 07:02] LABS: Potassium 4.1 mmol/L (3.5-5.1); Sodium 139 mmol/L (136-145)
[2024-07-28 07:16] LABS: Chloride 107 mmol/L (98-107)
[2024-07-28 07:29] LABS: Anion Gap 6 (5-15); Calcium 9.4 mg/dL (8.7-10.4); Carbon Dioxide 26 mmol/L (20-31)
[2024-07-28 07:34] LABS: Alkaline Phosphatase 47 U/L (46-116)
[2024-07-28 07:35] LABS: BUN/Creatinine Ratio 11.1 (10.0-20.0); Blood Urea Nitrogen 13 mg/dL (9-23); Glucose 100 mg/dL (74-106)
[2024-07-28 07:36] LABS: Alanine Aminotransferase 23 U/L (7-40); Albumin 4.2 g/dL (3.2-4.8); Aspartate Aminotransferase 17 U/L (13-40); Total Protein 6.5 g/dL (5.7-8.2)
[2024-07-28 07:37] LABS: Bilirubin, Total 0.4 mg/dL (0.2-1.0)
[2024-07-28] MEDS: CHOLECALCIFEROL (VITD3) 1,000UNIT=25mCg TAB PO SCH (10:00)
[2024-07-28] MEDS: ATENOLOL 25 MG TAB PO SCH (10:06)
[2024-07-28] MEDS: amLODIPine BESYLATE 5 MG TAB PO SCH (10:07)
[2024-07-28] MEDS: hydroCHLOROthiazide 25 MG TAB PO SCH (10:07)
[2024-07-28] MEDS: PANTOPRAZOLE 40 MG TAB PO SCH (10:07)
[2024-07-28] MEDS ORDERED: hydrOXYzine 25 MG TAB or CAP PO PRN (13:15)
--- NOTE | 2024-07-28 15:09 | DVH ---
EXAM: XY CHEST PORTABLE TECHNIQUE: Single frontal chest radiograph CLINICAL HISTORY: dizziness COMPARISON: XY CHEST PORTABLE on DOS: 07/27/24, CHEST PORTABLE on DOS: 05/17/22, CXRP on DOS: 05/16/22 Findings/Impression: Frontal chest radiograph demonstrates no acute osseous or superficial soft tissue abnormalities. The trachea is midline. The cardiac silhouette and mediastinum are within normal limits. No pneumothorax, pleural effusions, or consolidations.
--- NOTE | 2024-07-28 16:34 | DVHPN2 ---
Subjective Feels better Reviewed: Care Plan, H&P, Labs, Medications, Previous Orders, Radiology Changes from previous H/P or p: No Changes Eyes: Other (Blurry vision) Gastrointestinal: Constipation Objective Vitals Vital Signs Date Time Temp Pulse Resp B/P (MAP) Pulse Ox O2 Delivery O2 Flow Rate FiO2 07/28/24 13:00 97.9 82 20 145/77 (99) 96 97.9 07/28/24 09:30 Room Air* 0 21 Intake/Output Intake and Output 07/28/24 07:00 Intake Total 2825 ml Balance 2825 ml Intake Oral 1825 ml IV Total 1000 ml # Voids 2 General Appearance: Alert, Oriented X3, Cooperative, No acute distress HEENT: Atraumatic Lungs: Clear to auscultation Cardiovascular: Regular rate Extremities: Other (Trace to 1+ edema bilateral lower extremities) Medications Current Medications Medications Dose Ordered Sig/Gunjan Route Start Time Stop Time Status Last Admin Dose Admin Ondansetron HCl 4 mg Q4HP PRN IV 07/27/24 07:45 Acetaminophen 650 mg Q6HP PRN PO 07/27/24 07:45 Atenolol 25 mg DAILY PO 07/28/24 10:00 07/28/24 10:06 25 MG Hydrochlorothiazide 50 mg DAILY PO 07/28/24 10:00 07/28/24 10:07 50 MG Amlodipine Besylate 10 mg DAILY PO 07/28/24 10:00 07/28/24 10:07 10 MG Cholecalciferol 5,000 unit DAILY PO 07/28/24 10:00 Pantoprazole Sodium 40 mg DAILY PO 07/28/24 10:00 07/28/24 10:07 40 MG Meclizine HCl 12.5 mg [id number] PRN PO 07/27/24 12:00 Albuterol 2.5 mg Q4HPRN PRN NEB 07/27/24 12:00 07/28/24 07:36 2.5 MG Ipratropium Lentner 0.5 mg Q4HPRN PRN NEB 07/27/24 12:00 07/28/24 07:36 0.5 MG Sodium Chloride 1,000 ml @ 100 mls/hr Q10H IV 07/27/24 12:00 07/28/24 05:28 100 MLS/HR Docusate Sodium 100 mg BID PO 07/27/24 22:00 07/28/24 09:39 100 MG Hydroxyzine Pamoate 25 mg BID PRN PO 07/28/24 13:15 Laboratory Results Laboratory Tests 07/28/24 04:12 Chemistry Test 07/28/24 04:12 Albumin 4.2 g/dL (3.2-4.8) Calcium Level 9.4 mg/dL (8.7-10.4) Total Protein 6.5 g/dL (5.7-8.2) Coagulation Test 07/28/24 13:45 D-Dimer, Quantitative < 0.19 mg/L FEU (0.0-0.49) LFT Test 07/28/24 04:12 Alanine Aminotransferase (ALT) 23 U/L (7-40) Alkaline Phosphatase 47 U/L (46-116) Aspartate Amino Transferase (AST) 17 U/L (13-40) Total Bilirubin 0.4 mg/dL (0.2-1.0) Assessment/Plan Assessment/Plan Dizziness Hypertension Diverticulosis Morbid obesity Anemia Asthma Plan: Echocardiogram pending. D-dimer. Chest x-ray. Currently ultrasound. Further plan per orders Plan discussed with: Patient, Spouse My Orders Orders - DALIA WHATLEY MD Procedure Category Date Status Time Hydroxyzine Oral PHA 07/28/24 In Process (Vistaril Oral) 13:15 Chest Portable XY 07/28/24 Resulted 13:15 Carotid Duplx W Color US 07/28/24 Verified DOP 16:31 Date of Service: Jul 28, 2024 Billing Provider: DALIA WHATLEY MD Common Visit Codes: [id number] INP/OBS CARE(HIGH) DALIA WHATLEY MD Jul 28, 2024 16:34
--- NOTE | 2024-07-28 17:45 | DVH ---
Carotid Duplex Clinical History: dizziness Comparison: None Technique: Duplex Doppler evaluation of the extracranial carotid and vertebral arteries including color Doppler and spectral/pulsed waveform analysis was performed. Findings: RIGHT SIDE: The peak systolic velocities are 86 cm/s in the CCA, 66 cm/s in the ICA. The ICA/CCA ratio is 0.8. The external carotid artery is patent with peak systolic velocity of 90 cm/s proximally. There is appropriate antegrade flow in the right vertebral artery. LEFT SIDE: The peak systolic velocities are 80 cm/s in the CCA, 77 cm/s in the ICA. The ICA/CCA ratio is 1.0. The external carotid artery is patent with peak systolic velocity of 105 cm/s proximally. There is appropriate antegrade flow in the left vertebral artery. IMPRESSION: No evidence of hemodynamically significant stenosis in the bilateral carotid systems. Reference: Radiology 2003; 229:340-346 Normal ICA PSV is <125 cm/sec and no plaque or intimal thickening is visible sonographically additional criteria include ICA/CCA PSV ratio <2.0 and ICA EDV <40 cm/sec <50% ICA stenosis ICA PSV is <125 cm/sec and plaque or intimal thickening is visible sonographically additional criteria include ICA/CCA PSV ratio <2.0 and ICA EDV <40 cm/sec 50-69% ICA stenosis ICA PSV is 125-230 cm/sec and plaque is visible sonographically additional criteria include ICA/CCA PSV ratio of 2.0-4.0 and ICA EDV of 40-100 cm/sec 70% ICA stenosis but less than near occlusion ICA PSV is >230 cm/sec and visible plaque and luminal narrowing are seen at marquez-scale and color Dopp ler ultrasound (the higher the Doppler parameters lie above the threshold of 230 cm/sec, the greater the likelihood of severe disease) additional criteria include ICA/CCA PSV ratio >4 and ICA EDV >100 cm/sec
[2024-07-29] VITALS (10 sets, daily range): BP systolic 131–145; BP diastolic 75–84; PULSE 57–88; RESP 18–20; TEMP 97.8–98.3; O2SAT 98–100
--- NOTE | 2024-07-29 01:35 | DVHSR ---
APPROVED REPORT EXAM: Two-dimensional and M-mode echocardiogram with Doppler and color Doppler. Blood Pressure: 149/94 mmHg INDICATION Dizziness and Vertigo RISK FACTORS Obesity: Height: 6'1, Weight: 336 DIMENSIONS LVDd5.7 (3.8-5.7cm)LA (2D) (1.9-4.0cm)Aortic Root3.2 (2.0-3.7cm) LVDs3.5 (2.5-4.0cm)LA (MM) (1.9-4.0cm)Aortic Cusp Exc1.9 (1.5-2.0cm) EF (%) 65.0 (55-70%)Rt. Atrium (1.9-4.0cm)Asc. Aorta3.2 cm IVSd1.1 (0.7-1.1cm)RV (D) (1.8-2.4cm) PWd1.0 (0.7-1.1cm) Mitral Valve MitralMitral Stenosis E wave0.76m/sMV Mean GR.mmHg A wave0.75m/sMV Peak GR.mmHg E/A ratio1.02D MVAcm2 DECEL [id number] 1/2 Tim[place] Aortic Valve Aortic ValveAortic Stenosis V11.09m/Al[place] Mean GR.7mmHg V21.61m/Al[place] Peak GR.10mmHg LVOT Diameter2.4 (1.8-2.4cm)Doppler AVA3.06cm2 Pulmonic Valve V21.10m/s Other Information Quality : Technically LimitedRhythm : Technically limited study due to patient position.body habitus. Conclusion NORMAL LV FUNCTION LV EF IS 70% NORMAL VALVES NO EFFUSION NORMAL RV FUNCTION
--- NOTE | 2024-07-29 15:48 | DVHDS2 ---
Discharge Summary Date of Admission Jul 27, 2024 at 07:35 Date of Discharge: Jul 29, 2024 Admitting Diagnosis Hypertension with dizziness and blurred vision Labs/Diagnostic Data: Laboratory Results Test 07/28/24 13:45 07/28/24 04:12 07/27/24 08:17 07/27/24 02:23 D-Dimer, Quantitative < 0.19 mg/L FEU (0.0-0.49) White Blood Count 6.3 10^3/uL (4.4-10.8) Red Blood Count 5.30 10^6/uL (4.5-5.90) Hemoglobin 12.1 g/dL (13.5-17.5) Hematocrit 39.0 % (41.0-53.0) Mean Corpuscular Volume 73.5 fL (80.0-100.0) Mean Corpuscular Hemoglobin 22.8 pg (28.0-32.0) Mean Corpuscular Hemoglobin Concent 31.0 g/dL (32.0-36.0) Red Cell Distribution Width 13.9 % (11.8-14.3) Platelet Count 250 10^3/uL (140-450) Mean Platelet Volume 8.1 fL (6.9-10.8) Neutrophils (%) (Auto) 42.9 % (37.0-80.0) Lymphocytes (%) (Auto) 43.1 % (10.0-50.0) Monocytes (%) (Auto) 8.9 % (0.0-12.0) Eosinophils (%) (Auto) 4.3 % (0.0-7.0) Basophils (%) (Auto) 0.8 % (0.0-2.0) Neutrophils # (Auto) 2.7 10 ^3/uL (1.6-8.6) Lymphocytes # (Auto) 2.7 10 ^3/uL (0.4-5.4) Monocytes # (Auto) 0.6 10 ^3/uL (0-1.3) Eosinophils # (Auto) 0.3 10 ^3/uL (0-0.8) Basophils # (Auto) 0.1 10 ^3/uL (0-0.2) Nucleated Red Blood Cells 0.1 % Sodium Level 139 mmol/L (136-145) Potassium Level 4.1 mmol/L (3.5-5.1) Chloride Level 107 mmol/L (98-107) Carbon Dioxide Level 26 mmol/L (20-31) Anion Gap 6 (5-15) Blood Urea Nitrogen 13 mg/dL (9-23) Creatinine 1.17 mg/dL (0.700-1.30) Glomerular Filtration Rate Calc 78 mL/min (>90) BUN/Creatinine Ratio 11.1 (10.0-20.0) Serum Glucose 100 mg/dL (74-106) Calcium Level 9.4 mg/dL (8.7-10.4) Total Bilirubin 0.4 mg/dL (0.2-1.0) Aspartate Amino Transferase (AST) 17 U/L (13-40) Alanine Aminotransferase (ALT) 23 U/L (7-40) Alkaline Phosphatase 47 U/L (46-116) Total Protein 6.5 g/dL (5.7-8.2) Albumin 4.2 g/dL (3.2-4.8) Influenza Type A Antigen Negative (Negative) Influenza Type B Antigen Negative (Negative) SARS-CoV-2 Antigen (Rapid) Negative (NEGATIVE) Troponin I High Sensitivity 4 ng/L (</=54) Thyroid Stimulating Hormone (TSH) 3.06 uIU/mL (0.55-4.78) Other Laboratory Tests 07/28/24 04:12 Brief Hx & Hospital Course: 44-year-old gentleman admitted to the hospital from the emergency room because of elevated blood pressure and some dizziness and blurred vision. Patient remained stable during the hospital stay. Apparently he has history of blood pressure for which she was given atenolol and amlodipine but apparently the patient stopped taking them a month ago due to side effects that he did not like. He takes only water pill/HCTZ. Patient will be discharged home on losartan 25 mg. HCTZ 50 mg and nifedipine ER 30 mg. Patient has bradycardia with the atenolol. And he did not like the amlodipine previously. Condition at Discharge: Good Final Diagnosis/Problems List Hypertension Dizziness Bradycardia with beta-yojana Morbid obesity Diverticulosis Asthma Anemia/borderline Discharge Disposition: Home Discharge Instruct/Medications Diet: Cardiac 2g Na,low cholest (2 gm sodium, low cholesterol and high fiber/vegetable diet) Activity: No Restrictions, As Tolerated Follow Up/Referral: With PCP within one week Medications: HCTZ 50 mg daily Losartan 25 mg daily Nifedipine ER 30 mg daily Resume other previous home medication except for atenolol and amlodipine 38 Discharge Statement: "Patient was advised to return to the ER or call 911 if any headaches, dizziness, shortness of breath, chest pain, abdominal pain, bleeding, fevers, or worsening of medical condition. Patient was counseled about treatment plan, medications, possible side effects, patientverbalized understanding. All questions were answered to the best of my ability. This discharge took greater then 30 minutes in planning, reviewing documentation, counseling the patient, and discussing with other team members." ASSESSMENT ASSESSMENT Assessment Date of Service: Jul 29, 2024 Billing Provider: DALIA WHATLEY MD Common Visit Codes: [id number] DISCH DAY >30min DALIA WHATLEY MD Jul 29, 2024 15:48
[2024-07-29] MEDS ORDERED: LOSA-533 PO (15:50)
[2024-07-29] MEDS ORDERED: NIFE1TAB31 PO (15:50)
== END 2024-07-29 16:20 | disposition home or self-care (01) | DRG 48 ==
LOC: ER 00:58 → OVERFLOW 07:35 → EAST 11:00 → WEST WING 07-28 17:08
DX: G90.89 Other disorders of autonomic nervous system (principal); N17.0 Acute kidney failure with tubular necrosis; E66.01 Morbid (severe) obesity due to excess calories; Z20.822 Contact with and (suspected) exposure to COVID-19; K59.00 Constipation, unspecified; K57.30 Diverticulosis of large intestine without perforation or abscess without bleeding; I10 Essential (primary) hypertension; D64.9 Anemia, unspecified; J45.909 Unspecified asthma, uncomplicated; Z82.49 Family history of ischemic heart disease and other diseases of the circulatory system; Z68.42 Body mass index [BMI] 45.0-49.9, adult; Z79.899 Other long term (current) drug therapy
CPT/HCPCS: 36415; 70450; 71045; 74176; 80048; 80053; 84443; 84484; 85025; 85379; 87426; 87804; 93005; 93306; 93886; 94640; G0378